=== PATIENT | male | born 1995 | race Caucasian/White ===

== ENCOUNTER 2024-10-30 05:51 | Emergency (ER) | payer OTHER ==
[~2024-10-30] VITALS: Ht 182.9 cm; Wt 92.4 kg
[2024-10-30] MEDS ORDERED: SULF1TAB49 PO (06:46)
[2024-10-30] MEDS: sulfamethoxazole/trimethoprim DS (800/160mg) tablet PO ONE (06:56)
[2024-10-30] MEDS: LIDOcaine 1% W/epiNEPHrine 1:100,000 20ml vial SQ ONE (06:57)
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
[2024-10-30] MEDS ORDERED: HYDR-3965 PO (07:17)
[2024-10-30] MEDS ORDERED: AMOX-117 PO (07:17)
[2024-10-30] MEDS: amox tr/potassium clavulanate 875/125mg TAB PO ONE (07:33)
[2024-10-30 07:34] VITALS: BP 136/78; PULSE 70; RESP 15; TEMP 97.4; O2SAT 99
== END 2024-10-30 07:37 | disposition home or self-care (01) ==
LOC: ER 05:52
DX: L02.414 Cutaneous abscess of left upper limb (principal); Z79.899 Other long term (current) drug therapy
CPT/HCPCS: 10060; 99283; A6449